=== PATIENT | male | born 1970 | race Caucasian/White ===

== ENCOUNTER → 2017-05-01 | Outpatient (CLI) | payer OTHER ==
--- NOTE | 2017-05-01 23:11 | MR ---
EXAMINATION TYPE: MR lumbar spine wo con DATE OF EXAM: 05/01/2017 COMPARISON: Prior MRI lumbar spine April 22, 2010. HISTORY: Radiculopathy per order. Low back pain causing worsening pain in left leg per patient. TECHNIQUE: Multiplanar, multisequence imaging of the lumbar spine is performed without IV contrast. FINDINGS: Sagittal images of the lumbar spine show vertebral body heights and alignment to appear sat isfactory. There is redemonstration of disc desiccation L4-L5 level. There is new disc desiccation T1 2-L1, L3-L4, and L5-S1 levels. . There is persistent disc space narrowing with mild to moderate ante rior spurring T12-L1 level. Sagittal images show small posterior disc herniations at all levels of di sc desiccation more prominent than prior. The conus medullaris is normal in position and signal endin g at T12-L1 disc space level. The bone marrow signal intensity is within normal limits. Mild to mini mal multilevel anterior spurring is seen. Axial images at T12-L1 level shows mild to moderate broad disc bulge mildly effacing anterior thecal sac. Finding is more pronounced versus prior. Bilateral neural foramina are patent. Axial images at L1-L2 and L2-L3 levels remain within normal limits. Axial images at L3-L4 level show broad disc bulge with right lateral disc protrusion component. There is effacement of anterior thecal sac. There is moderate right and mild left-sided anterior inferior neural foraminal narrowing. Axial images at L4-L5 level show mild facet degenerative changes bilaterally. There is moderate broad disc bulge effacing anterior thecal sac. There is moderate to severe bilateral neural foraminal narr owing at this level identified. Encroachment on both L4 nerves is difficult to exclude on sagittal im ages 3 and 12. Axial images at L5-S1 level show mild facet degenerative changes bilaterally. There is broad disc bul ge seen. There is severe left and moderate right-sided neural foraminal narrowing. There is encroachm ent on left L5 nerve sagittal image 3. There is encroachment along the anterior aspect of right L5 ne rve on sagittal image 13. 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
== END | disposition home or self-care (01) ==
LOC: RADMRIMAIN 20:42
PROVIDERS: ATTEND Nurse Practitioner
DX: M47.27 Other spondylosis with radiculopathy, lumbosacral region (principal); M47.24 Other spondylosis with radiculopathy, thoracic region
CPT/HCPCS: 72148